=== PATIENT | female | born 1945 | race Caucasian/White ===

== ENCOUNTER 2024-04-25 17:44 | Inpatient (IN) | payer MEDICARE, OTHER, SELFPAY ==
[2024-04-25] VITALS (9 sets, daily range): BP systolic 103–138; BP diastolic 46–85; PULSE 76–96; BMI 19.4; BMI 18.6
[2024-04-25 12:58] LABS: Urine Albumin Negative (Neg - Trace); Urine Bilirubin Negative (Negative); Urine Character Clear (Clear); Urine Color Yellow; Urine Glucose Negative (Negative); Urine Ketone Negative (Negative); Urine Leukocyte Negative (Negative); Urine Nitrite Negative (Negative); Urine Occult Blood Negative (Negative); Urine Specific Gravity 1.015 (<1.030); Urine Urobilinogen Negative (Neg - 1+)
[2024-04-25 12:59] LABS: % Basophils 0.7 % (0-2); % Eosinophils 2.5 % (0-6); % Immature Granulocytes 0.2 % (0-0.5); % Lymphocytes 22.4 % (20.5-51.1); % Monocytes 9.3 % (1.7-9.3); % Neutrophils 64.9 % (42.2-75.2); Absolute Eosinophils 0.1 10^3/uL (0-0.7); Absolute Lymphocytes 0.9 10^3/uL (1.2-3.4); Absolute Monocytes 0.4 10^3/uL (0.1-0.6); Absolute Neutrophils 2.6 10^3/uL (1.4-6.5); Hematocrit 39.4 % (37.0-47.0); Hemoglobin 13.7 g/dL (12.0-16.0); Mean Corp Hgb Conc. 34.8 g/dL (33.0-37.0); Mean Corpuscular Hgb 29.7 pg (27.0-31.0); Mean Corpuscular Volume 85.5 fL (81.0-99.0); Nucleated Red Blood Cells % 0 %; Platelet Count 199 10^3/uL (130-400); Red Blood Cell Count 4.61 10^6/uL (4.20-5.40); Red Cell Dist. Width 13.3 % (11.5-14.5); White Blood Cell Count 4.1 10^3/uL (4.8-10.8)
[2024-04-25 13:13] LABS: ALT (SGPT) 26 U/L (0-35); AST (SGOT) 35 U/L (14-36); Albumin 4.5 g/dl (3.5-5.0); Alkaline Phosphatase 96 U/L (38-126); Blood Urea Nitrogen 16 mg/dl (7-17); Calcium 9.4 mg/dl (8.4-10.2); Carbon Dioxide 28 mmol/L (22-30); Chloride 88 mmol/L (98-107); Estimated Creatinine Clearance 52 ml/min; Glucose 106 mg/dl (70-99); Potassium 4.1 mmol/L (3.5-5.1); Sodium 127 mmol/L (135-145); Total Bilirubin 0.5 mg/dl (0.2-1.3); Total Protein 6.6 g/dl (6.3-8.2); eGFR > 60.00
[2024-04-25 13:26] LABS: Troponin I < 0.012 ng/ml
--- NOTE | 2024-04-25 14:18 | ED.GENMED ---
History of Present Illness
General
Chief Complaint: Dizziness
Source: patient
Exam Limitations: none
Time Seen by Provider: 04/25/24 12:45
Nursing documentation reviewed up to this point in time: agreed with
History of Present Illness
History of Present Illness:
pt is a 79 y/o F h/o celiac disease, chronic back pain
here with dizziness x 3-4 weeks
saying she started noticing a room spinning sensation similar to her previous vertigo/vestibular problem that she had years ago and did therapy for
so she started doing the exercises but hasn't felt improvement
it has also come along with a headache, daily, posterior that waxes and wanes but has been present for at least 2 weeks
about 10 day ago she went to a clinic near her house and they sent her to a hospital in [place]
there, they did testing and ct head and pt believes eerything was ok, but that they felt it to be due to 'vestibular problem
Yet she was not put on any medication for this. Patient says she is continue to have symptoms especially with standing or changing position in the bed like turning her head [id number]. And now she is feeling like she is having trouble walking
with her balance. She has not had any sudden worsening of the headache, vision changes, numbness or tingling in her arms or legs but she does feel like her legs are overall generally weak. She is anxious and tearful about going home because she is
feeling like she is unsafe to be there. She is not feeling like she is leaning to one side or feeling like she is going to pass out. No chest pain or shortness of breath
Past History
Past History
ED Past Medical History: Other (Low back pain, Lyme disease) and Other (Peripheral neuropathy)
ED Past Surgical History: Appendectomy
Social History
Tobacco: Non-smoker
Alcohol: None
Personal:
Living: with family
Employment: Retired
Family History
Family History: CAD and Other (Noncontributory)
Review of Systems
Review of Systems
Allergies reviewed?: Yes
All Other Systems: Not applicable
Phy Exam
Physical Exam
Physical Exam:
GENERAL: Alert , in no apparent distress, but tearful
HEAD: NCAT
EYE: pupils equal and reactive, mild lateral gaze horizontal nystagmus, no photophobia
NECK: Supple,full rom, nontender
ENT: o/p clr, mmm.
CARDIAC: Regular rate and rhythm . no edema
LUNGS: Clear breath sounds bilaterally, no acute respiratory distress, no wheezes/rales/rhonchi
ABDOMEN: Soft, without focal tenderness, no r/g, no cvat
NEUROLOGICAL: Alert and orientedx 4, cn intact, no facial asymmetry, 5/5 strength in UE/LE, sensation intact, romberg neg, ambulates without assistance but slowly and slightly wide based, neg pronator drift
SKIN: Warm and dry, skin intact.
MUSCULOSKELETAL: No edema, well perfused.
PSYCH: Normal and appropriate interaction.
Course
Orders/Labs/Results
Orders:
Orders
04/25/24 Lunch
Gluten Free
At Your Request: Full Participation
Does patient need a safe tray?: No
Fluid Restriction: 1800 mL/day (60 oz)
04/25/24 11:47
ECG [Electrocardiogram (*1)] Urgent
Reason for Study: Vertigo / Dizzy
04/25/24 11:48
EKG- Treatment ONCE
04/25/24 12:49
Complete Blood Count/With Diff Urgent
Comprehensive Metabolic Panel Urgent
Osmolality, Random Urine Urgent
Date Specimen was Collected: 04/25/24
Time Specimen was Collected: 12:40
Comment: ADD ON
Serum Osmolality Urgent
Comment: ADD ON
Troponin I Urgent
UA Reflex to Culture [Urinalysis Reflex To Culture] Urgent
Date Specimen was Collected: 04/25/24
Time Specimen was Collected: 12:40
Urine Sodium Urgent
Date Specimen was Collected: 04/25/24
Time Specimen was Collected: 12:40
Comment: ADD ON
04/25/24 13:46
CT Head & Neck Angio W/wo IV Urgent
Comment:
Reason For Exam: dizziness
04/25/24 14:25
Diazepam [Valium] 5 mg PO NOW STA
04/25/24 14:49
COVID-19 Antigen Urgent
Source: Nasal Swab
04/25/24 15:47
Acetaminophen [Tylenol] 650 mg PO NOW STA
04/25/24 15:53
Add On- LAB Urgent
Tests Added?: serum osolality, urine sodium
04/25/24 17:30
Admit/Transfer Patient As Directed
Co-Sign Provider:
Level of Care: Inpatient admission
Assign to:: Medical/Surgical
Physician / Group: Lori Mason
Diagnosis: Vertigo possibly symptomatic Hyponatremia vs Vestibular Neuritis
Reason for Hospitalization: Vertigo possibly symptomatic Hyponatremia vs Vestibular Neuritis
Expected length of stay greater than two midnights?: Yes
ELOS- Estimated Length of Stay in days: 2
I certify the patient meets the requirements for IP care: Yes
PRN Pain Medication Management As Directed
May give lesser potent ordered pain med per pt: Yes
preference::
Protocol:: Medication orders for pain may be administered in a
manner that supports deferring to patient preference
when the pt is:
- Requesting an ordered lesser potent pain medication.
Least to most potent pain medications are defined
as: acetaminophen < NSAID < tramadol < opioids
(morphine, oxycodone, hydromorphone).
- Requesting a lesser dose of the same medication IF
ORDERED.
- Requesting a less intrusive route of administration
if both routes are prescribed by the provider (PO <
IV).
04/25/24 17:33
Code Status As Directed
Resuscitation Status: Full Code
04/25/24 18:17
Bisacodyl [Dulcolax] 10 mg RECTAL [id number] PRN
Diazepam [Valium] 5 mg PO BIDPRN PRN
Docusate W/Senna [Senokot-S] 1 tablet PO BIDPRN PRN
Polyethylene Glycol Powder [Miralax] 17 grams PO DAILYPRN PRN
04/25/24 18:17
Activity As Directed
Activity Level: With Assistance
Medical Records Request [Obtain Records] As Directed
Dates of Information to be Released: [facility]
Type of Information Requested: Entire Record
Comment: Recent hospitalization this month Apr work up dizziness
Pneumatic Compression Sleeves As Directed
Type: Knee high
Precautions As Directed
Type of Precautions: Other
Comment: Fall precautions
Vital Signs As Directed
Frequency: Per unit guidelines
Ot Eval And Treat Routine
Pt Eval And Treat Routine
Activity Level: With Assistance
DX Deep Vein Thrombosis Video Routine
04/25/24 20:00
Calcium Carbonate [Oscal Galo 500] 500 mg PO BID
Magnesium l-Lactate [Mag-Tab Sr] 84 mg PO BID
04/25/24 22:00
Pramipexole [Mirapex, Generic] 0.5 mg PO HS
04/26/24 05:52
Basic Metabolic Panel IN AM
Complete Blood Count/No Diff IN AM
Magnesium IN AM
04/26/24 08:00
Cholecalciferol (Vitamin D3) [VITAMIN D3 (cholecalciferol)] 50 mcg PO DAILY
Cyanocobalamin [Vitamin B-12] 1,000 mcg PO DAILY
Lactobac/Bifidobac [Visbiome] 1 cap PO DAILY
04/26/24 14:00
Pramipexole [Mirapex] 0.25 mg PO DAILY@1400
04/27/24 06:02
Basic Metabolic Panel IN AM
Complete Blood Count/No Diff IN AM
Magnesium IN AM
04/28/24 06:00
Basic Metabolic Panel IN AM
Complete Blood Count/No Diff IN AM
Magnesium IN AM
04/29/24 06:00
Basic Metabolic Panel IN AM
Complete Blood Count/No Diff IN AM
Magnesium IN AM
04/30/24 06:00
Basic Metabolic Panel IN AM
Complete Blood Count/No Diff IN AM
Magnesium IN AM
05/01/24 06:00
Basic Metabolic Panel IN AM
Complete Blood Count/No Diff IN AM
Magnesium IN AM
05/02/24 06:00
Basic Metabolic Panel IN AM
Complete Blood Count/No Diff IN AM
Magnesium IN AM
Abnormal Lab Results
04/25/24
12:49
WBC 4.1 L 10^3/uL
(4.8-10.8)
Absolute Lymphs (auto) 0.9 L 10^3/uL
(1.2-3.4)
Sodium 127 L mmol/L
(135-145)
Chloride 88 L mmol/L
(98-107)
Glucose 106 H mg/dl
(70-99)
Serum Osmolality 259 L mOsm/kg
(275-300)
Urine Sodium 29 L mmol/L
(30-90)
04/25/24 12:49
04/25/24 12:49
Vital Signs
Initial and Last Documented VS:
Initial Vital Signs
Temp Pulse Resp BP Pulse Ox
98.3 F 87 18 125/85 99
04/25/24 11:43 04/25/24 11:43 04/25/24 11:43 04/25/24 11:43 04/25/24 11:43
Last Documented Vital Signs
Temp Pulse Resp BP Pulse Ox
98 F 94 20 119/70 98
04/27/24 07:00 04/27/24 07:00 04/27/24 07:00 04/27/24 07:00 04/27/24 07:00
MDM/Problems Addressed
Differential Diagnosis Includes:
vertigo, dissection, stroke, migraine, menieres disease, hyponatremia
MDM/Problems Addressed:
79 y/o F with ho vestibular vertigo in the past
here with dizziness that feels like room spinnintg at times over epaast several weeks not improved with her doing home vestibular therpay
she went to an outside hospital ED 10 days ago and had w/u there and was told they also agreed it was vestibular dysfunction. Patient says she was not given any medications to try.
She comes today because she has had ongoing symptoms with a progressive worsening headache. It is 9 out of 10 global headache. She has had a headache all long. And never suddenly got worse.
Patient says that she feels like her balance is poor and affected at this point. She also feels like she has lower extremity weakness in her legs. She says they just do not feel as strong as her upper extremities. She has chronically had
hyponatremia but she says her doctor really does not tell her anything about it. She does not think she is on any medications to cause it. She is only taking an medication for restless leg syndrome. But she does drink a lot of water, she thinks
she cannot even quantify how much water she drinks. On exam the patient is tearful. She has no resting nystagmus. She is able to turn her head in the bed without getting sick. Neurologically is otherwise intact though she did have a slightly
wider base gait and seemed a little bit off balance though she could walk unassisted. She feels generally weak in her legs but I do not appreciate any overt weakness. She has reflexes in her upper extremities.
Her labs show her sodium is 127 and has been as low as 126 previously. She is never received treatment for this. I do feel like her symptoms could largely be secondary to her sodium which is possibly SIADH. She feels very anxious about going
home. I did offer to treat her with Valium p.o. for both her restless legs and the possible vertigo that she has she declined the medication. Will admit for workup for hyponatremia given that she is symptomatic
*Critical Care Note
Total Time (30-74mins, 75-104mins- exclusive of procedures): Not Applicable
ED Attending Note
-
Portions of this chart may have been created with voice recognition software.� Occasional wrong word or��sound alike� substitutions may have occurred due to the inherent limitations of voice recognition software.
Discharge Plan
Departure
Patient Disposition: Admit
Date of Disposition: 04/25/24
Time of Disposition: 15:27
Admit to: Telemetry
Presentation/result/management discussed w/ accepting MD/DO: Hospitalist
Condition: Fair
Covid-19: Not Applicable
Discharge Problem:
Hyponatremia, Dizziness
Interventions
Interventions:
*Risk Screen - Suicide Last Done: 04/25/24 19:50
*General Assessment Last Done: 04/25/24 11:43
*Neglect/Abuse Screening Last Done: 04/25/24 12:33
ED- Fall Risk Assessment Last Done: 04/25/24 13:45
*ED COVID-19 Vaccine History Last Done: 04/25/24 19:50
*Nursing Disposition Last Done: 04/25/24 18:31
ED- Neurological Assessment Last Done: 04/25/24 13:44
ED- Cardiac Assessment Last Done: 04/25/24 14:00
Discharge Date and Time
Discharge Date/Time: 04/25/24 18:32
[2024-04-25 15:22] LABS: COVID-19 Antigen Negative (Negative)
[2024-04-25] MEDS: TYLENOL 650 MG PO ×2 (15:49→20:05)
--- NOTE | 2024-04-25 15:55 | HPS.HSE ---
Family Physician
-
Family Physician: Sandra Rahman
Chief Complaint
-
Dizziness
History of Present Illness
79 female history of celiac disease chronic back pain appendectomy restless leg syndrome chronic hyponatremia presents with intermittent dizziness progressive for the last few weeks acutely worsening last 10 days. 10 days ago, patient report
symptoms acutely worsen overnight when she woke up to her way bad smell in the house. Unclear as to whether stress of the smell was. Patient had her house inspected for source, none identified and it seems that she is the only one who notices the
smell. Patient was evaluated at [facility] in [facility] and diagnosed with Vestibular Neuritis. No new medications were prescribed. Symptoms progressively worsen prompting evaluation here. VSS, CTA head and neck noted no acute
abn's. Labs were notable for Na 127, low serum osmolality and low urine Na suggestive hyponatremia 2/2 excess water intake (patient does endorse drinking a lot of water denies polydipsia).
Medical History
Past Medical History
Past Medical History: Reports Other (as above)
Past Surgical History: Reports Other (as above)
Social History
Tobacco: Non-smoker
Alcohol: Occasional
Drug: None
Personal: Partner
Living: Other (Lives with Partner but he is away in trip to [facility])
Family History
Family History: Other (Mother had stroke in her 70s)
Allergies / Home Medications
Allergies reflects when Allergies were last updated in [facility].
Home Medications with original date entered in [facility]
Allergy/Medication List:
Allergies
Allergy/AdvReac Type Severity Reaction Status Date / Time
gluten Allergy celiac Verified 04/25/24 11:43
disease
Home Medications
cholecalciferol (vitamin D3) 50 mcg (2,000 unit) capsule (Vitamin D3) 2,000 unit PO DAILY 07/11/17
Lactobac no.2-Bifidobac no.1-S. thermo 112.5 billion cell capsule (Anjukebiome) 1 cap PO DAILY 04/25/24
calcium carbonate (Calcium 600) 600 mg PO BID 04/25/24
cyanocobalamin (vitamin B-12) 1,000 mcg tablet 1,000 mcg PO DAILY 04/25/24
magnesium oxide 400 mg PO BID 04/25/24
omega 4-soh-iaj-fish oil 900 mg-1,400 mg capsule,delayed release 1 cap PO BID 04/25/24
pramipexole 0.25 mg tablet 0.25 mg PO DAILY@1400 04/25/24
pramipexole 0.25 mg tablet 0.5 mg PO HS 04/25/24
Review of Systems
-
A 12 point ROS was completed and negative except as noted: Yes
Constitutional: Reports Other (as below)
Physical Exam
Vital Signs
Vital Signs
Temp Pulse Resp BP Pulse Ox
98.3 F 75 17 123/71 97
04/25/24 11:43 04/25/24 13:50 04/25/24 13:50 04/25/24 13:50 04/25/24 13:45
Physical Exam
General: Other (as below)
Laboratory Results
-
04/25/24 12:49
04/25/24 12:49
Laboratory Results
Total Bilirubin 0.5 mg/dl (0.2-1.3) 04/25/24 12:49
AST 35 U/L (14-36) 04/25/24 12:49
ALT 26 U/L (0-35) 04/25/24 12:49
Alkaline Phosphatase 96 U/L (38-126) 04/25/24 12:49
Troponin I < 0.012 ng/ml 04/25/24 12:49
Impression/Plan
-
ROS
General: Denies fever chills night sweats unexpected weight loss
Neuro: Denies seizure shaking loss of consciousness reports dizziness vertigo headache
Psych: denies depression hallucinations confusion manic episodes
Endocrine: Denies polyuria polydipsia polyphagia heat/cold intolerance
HEENT: Denies blindness epistaxis reports blurry vision in association with headache
Pulmonary: denies coughing hemoptysis sneezing sob dyspnea on exertion
Cardiovascular: denies chest pain palpitations leg swelling
Hematology: denies signs symptoms of anemia easy bruising/bleeding
Gastrointestinal: denies nausea vomiting diarrhea constipation hematemesis hematochezia melena
Genito-Urinary: denies retention incontinence dysuria
Musculoskeletal: denies joint pain reports lower ext weakness
Dermatology: denies rash laceration bruising
Physical Exam
General: No pallor, cyanosis, or jaundice.
HEENT: Throat clear. PERRLA Normocephalic atraumatic Horizontal Nystagmus seems to be more prevalent on rightward gaze
NECK: Supple. No JVD Carotid Bruits
RESPIRATORY: Lungs clear to auscultation. No crackles wheezes stridor
CVS: S1, S2 normal. RRR. No murmur, rub or gallop.
ABDOMEN: Soft, non-tender. No distension. BS+/normal.
EXTREMITIES: No peripheral cyanosis or edema. strength 5/5 all ext's. Witnessed ambulating from bed to bathroom and back without issues/assist device
BAR TACKER: AOx3. No focal deficits.
IMPRESSION:
79 female history of celiac disease chronic back pain appendectomy restless leg syndrome chronic hyponatremia presents with intermittent dizziness progressive for the last few weeks acutely worsening last 10 days. 10 days ago, patient report
symptoms acutely worsen overnight when she woke up to her way bad smell in the house. Unclear as to whether stress of the smell was. Patient had her house inspected for source, none identified and it seems that she is the only one who notices the
smell. Patient was evaluated at [facility] in [facility] and diagnosed with Vestibular Neuritis. No new medications were prescribed. Symptoms progressively worsen prompting evaluation here. VSS, CTA head and neck noted no acute
abn's. Labs were notable for Na 127, low serum osmolality and low urine Na suggestive hyponatremia 2/2 excess water intake (patient does endorse drinking a lot of water denies polydipsia)
PLAN:
#Hyponatremia possible dilutional water intoxication
#Dizziness vertigo likely vestibular neuritis possibly exacerbated by symptomatic hyponatremia
med/surg admit
Fluid restriction
valium prn
fall precautions
PT/OT
trend Na
Records Request [place], [place]
#Headache with associate blurry vision possible migraine
prn tylenol
#Restless Leg
cont home Pramipexole
#Celiac dz
Gluten free diet
dvt ppx SCD
Full Code
I spent a total of 75 minutes with the patient or on the floor. More than 50% of this time involved counseling and coordination of care.
[2024-04-25 16:51] LABS: Osmolality Serum 259 mOsm/kg (275-300)
[2024-04-25 16:59] LABS: Urine Sodium 29 mmol/L (30-90)
[2024-04-25 19:03] LABS: Osmolality Urine 341 mOsm/kg (300-900)
[2024-04-25] MEDS: MAG-TAB SR 84 MG PO (20:05)
[2024-04-25] MEDS: OSCAL CAL 500 500 MG PO (20:05)
[2024-04-25] MEDS: MIRAPEX, GENERIC 0.5 MG PO (21:26)
[2024-04-26] MEDS: MIRAPEX 0.125 MG PO (02:47)
[2024-04-26 06:07] LABS: Hematocrit 37.1 % (37.0-47.0); Mean Corpuscular Hgb 29.6 pg (27.0-31.0); Mean Corpuscular Volume 84.5 fL (81.0-99.0); Mean Platelet Volume 9.8 fL (7.4-10.4); Platelet Count 195 10^3/uL (130-400); Red Blood Cell Count 4.39 10^6/uL (4.20-5.40); Red Cell Dist. Width 13.2 % (11.5-14.5); White Blood Cell Count 5.1 10^3/uL (4.8-10.8)
[2024-04-26 06:35] LABS: Blood Urea Nitrogen 16 mg/dl (7-17); Calcium 9.2 mg/dl (8.4-10.2); Carbon Dioxide 29 mmol/L (22-30); Chloride 95 mmol/L (98-107); Estimated Creatinine Clearance 58 ml/min; Glucose 94 mg/dl (70-99); Magnesium 2.2 mg/dl (1.6-2.3); Potassium 4.1 mmol/L (3.5-5.1); Sodium 134 mmol/L (135-145); eGFR > 60.00
[2024-04-26 07:15] VITALS: BP 138/91
--- NOTE | 2024-04-26 07:28 | W.PN.HOSP.TC ---
Today's Communication/Plan
-
Monitor Na, improved, relax fluid restrictions to 60 oz
Trial low dose Meclizine
prn Fioricet for headache if patient agreeable, otherwise prn Tylenol
discontinued prn Valium (did not help)
Assessment / Plan
Assessment / Plan
Physical Exam
General: No pallor, cyanosis, or jaundice.
HEENT: Throat clear. PERRLA Normocephalic atraumatic Horizontal Nystagmus seems to be more prevalent on rightward gaze
NECK: Supple. No JVD Carotid Bruits
RESPIRATORY: Lungs clear to auscultation. No crackles wheezes stridor
CVS: S1, S2 normal. RRR. No murmur, rub or gallop.
ABDOMEN: Soft, non-tender. No distension. BS+/normal.
EXTREMITIES: No peripheral cyanosis or edema. strength 5/5 all ext's. Witnessed ambulating from bed to bathroom and back without issues/assist device
LINING FELLER: AOx3. No focal deficits.
IMPRESSION:
79 female history of celiac disease chronic back pain appendectomy restless leg syndrome chronic hyponatremia presents with intermittent dizziness progressive for the last few weeks acutely worsening last 10 days. 10 days ago, patient report
symptoms acutely worsen overnight when she woke up to her way bad smell in the house. Unclear as to whether stress of the smell was. Patient had her house inspected for source, none identified and it seems that she is the only one who notices the
smell. Patient was evaluated at [facility] in [facility] [place] and diagnosed with Vestibular Neuritis. No new medications were prescribed. Symptoms progressively worsen prompting evaluation here. VSS, CTA head and neck noted no acute
abn's. Labs were notable for Na 127, low serum osmolality and low urine Na suggestive hyponatremia 2/2 excess water intake (patient does endorse drinking a lot of water denies polydipsia)
PLAN:
#Hyponatremia possible dilutional water intoxication
#Dizziness vertigo possibly exacerbated by symptomatic hyponatremia
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
Fluid restriction, Na since significantly from from 127 to 134, fluid restriction subsequently relaxed from 48 oz to 60 oz.
valium prn discontinued, did not help (patient feels medication worsened dizziness)
fall precautions
PT/OT appreciated recommended to cont w/ outpatient vestibular therapy (Has upcoming appt Sunday)
Records Request [place], [place]
start low dose scheduled meclizine
negative orthostatic hypotension
#Headache with associate blurry vision possible migraine
prn tylenol, prn fioricet also ordered has not used
#Restless Leg
cont home Pramipexole
#Celiac dz
Gluten free diet
dvt ppx SCD
Full Code
I spent a total of 50 minutes with the patient or on the floor. More than 50% of this time involved counseling and coordination of care.
Anticipated Discharge: Within 24 hours
Subjective/Interval History
-
Date of Service: April 26, 2024
no acute distress. Reports dizziness and headache. Earlier noted Blurry vision resolved
Objective Data
-
Labs:
Laboratory Results
04/26/24
05:52
WBC 5.1
Hgb 13.0
Hct 37.1
Plt Count 195
Sodium 134 L
Potassium 4.1
Chloride 95 L
Carbon Dioxide 29
BUN 16
Creatinine 0.6
Glucose 94
Calcium 9.2
Vital Signs:
Vital Signs
Temp Pulse Resp BP Pulse Ox
97.7 F 76 16 114/64 97
04/25/24 23:00 04/25/24 23:00 04/25/24 23:00 04/25/24 23:00 04/25/24 23:00
I&O
04/25/24 04/26/24 04/27/24
06:59 06:59 06:59
Intake Total 240 / 240
Balance 240 / 240
[2024-04-26 09:23] VITALS: BP 100/60; BP 127/69; BP 140/82; PULSE 116; PULSE 122
[2024-04-26] MEDS: VISBIOME 1 CAP PO (09:42)
[2024-04-26] MEDS: MAG-TAB SR 84 MG PO ×2 (09:42→20:45)
[2024-04-26] MEDS: TYLENOL 650 MG PO ×2 (09:42→17:08)
[2024-04-26] MEDS: OSCAL CAL 500 500 MG PO ×2 (09:42→20:45)
[2024-04-26] MEDS: VALIUM 5 MG PO (09:42)
[2024-04-26] MEDS: VITAMIN D3 (cholecalciferol) 50 MCG PO (09:42)
[2024-04-26] MEDS: VITAMIN B-12 1000 MCG PO (09:42)
[2024-04-26 11:06] VITALS: BP 106/63; BP 126/62; BP 127/59; PULSE 107; PULSE 80; PULSE 98
--- NOTE | 2024-04-26 12:31 | CM ---
CM reviewed chart, met with patient, initial assessment completed. Patient resides independently in a multiple story home with a first floor set up, three steps to enter. Patient denies use of DME, denies VN or SNF history. Patient reports she has
an appointment scheduled for Sunday for Vestibular Therapy. Patient confirms PCP Sandra Rahman, pharmacy [facility] in [place], [place]. Patient confirms prescription coverage. Patient denies any needs at this time. CM will continue to follow for all
discharge planning needs.
Plan; home with vestibular therapy, previously set up.
[2024-04-26 15:34] VITALS: BP 104/64
[2024-04-26] MEDS: MIRAPEX 0.25 MG PO (16:03)
[2024-04-26] MEDS: ANTIVERT 12.5 MG PO ×2 (17:36→21:48)
[2024-04-26] MEDS: ANTIVERT PO (20:43)
[2024-04-26] MEDS: MIRAPEX, GENERIC 0.5 MG PO (20:45)
[2024-04-26 23:25] VITALS: BP 104/70
[2024-04-27] MEDS: TYLENOL 650 MG PO (05:26)
[2024-04-27 06:43] LABS: Hematocrit 37.6 % (37.0-47.0); Hemoglobin 13.2 g/dL (12.0-16.0); Mean Corp Hgb Conc. 35.1 g/dL (33.0-37.0); Mean Corpuscular Hgb 30.8 pg (27.0-31.0); Mean Corpuscular Volume 87.6 fL (81.0-99.0); Mean Platelet Volume 10.3 fL (7.4-10.4); Platelet Count 191 10^3/uL (130-400); Red Blood Cell Count 4.29 10^6/uL (4.20-5.40); Red Cell Dist. Width 13.5 % (11.5-14.5); White Blood Cell Count 4.8 10^3/uL (4.8-10.8)
[2024-04-27 07:00] VITALS: BP 119/70
[2024-04-27 07:14] LABS: Blood Urea Nitrogen 16 mg/dl (7-17); Calcium 9.2 mg/dl (8.4-10.2); Carbon Dioxide 32 mmol/L (22-30); Chloride 97 mmol/L (98-107); Estimated Creatinine Clearance 50 ml/min; Glucose 94 mg/dl (70-99); Magnesium 1.9 mg/dl (1.6-2.3); Potassium 4.2 mmol/L (3.5-5.1); Sodium 135 mmol/L (135-145); eGFR > 60.00
--- NOTE | 2024-04-27 07:16 | W.PN.HOSP.TC ---
Addendum entered and electronically signed by Lori Mason MD 04/27/24 14:29:
Per nurse, patient changed her mind regarding meclizine (previously had reported as worsening her symptoms) requested to continue on medication.
Prescription sent to patient's pharmacy.
Original Note:
Today's Communication/Plan
-
discharge
Assessment / Plan
Assessment / Plan
Physical Exam
General: No pallor, cyanosis, or jaundice.
HEENT: Throat clear. PERRLA Normocephalic atraumatic Horizontal Nystagmus seems to be more prevalent on rightward gaze
NECK: Supple. No JVD Carotid Bruits
RESPIRATORY: Lungs clear to auscultation. No crackles wheezes stridor
CVS: S1, S2 normal. RRR. No murmur, rub or gallop.
ABDOMEN: Soft, non-tender. No distension. BS+/normal.
EXTREMITIES: No peripheral cyanosis or edema. strength 5/5 all ext's. Ambulating without need for assist device
SHE[employer] HELPER: AOx3. No focal deficits.
IMPRESSION:
79 female history of celiac disease chronic back pain appendectomy restless leg syndrome chronic hyponatremia presents with intermittent dizziness progressive for the last few weeks acutely worsening last 10 days. 10 days ago, patient report
symptoms acutely worsen overnight when she woke up to her way bad smell in the house. Unclear as to whether stress of the smell was. Patient had her house inspected for source, none identified and it seems that she is the only one who notices the
smell. Patient was evaluated at [facility] in [facility] and diagnosed with Vestibular Neuritis. No new medications were prescribed. Symptoms progressively worsen prompting evaluation here. VSS, CTA head and neck noted no acute
abn's. Labs were notable for Na 127, low serum osmolality and low urine Na suggestive hyponatremia 2/2 excess water intake (patient does endorse drinking a lot of water denies polydipsia)
PLAN:
#Hyponatremia possible dilutional water intoxication resolved with fluid restriction
#Dizziness vertigo possibly exacerbated by symptomatic hyponatremia
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
Fluid restriction, Na since significantly from from 127 to 134, fluid restriction subsequently relaxed from 48 oz to 60 oz, hyponatremia since resolved
valium prn and meclizine discontinued, did not help (patient feels medication worsened dizziness)
fall precautions
PT/OT appreciated recommended to cont w/ outpatient vestibular therapy (Has upcoming appt Sunday)
Records Request [place], [place]
negative orthostatic hypotension
#Headache with associate blurry vision possible migraine
prn tylenol, prn fioricet also ordered has not used
#Restless Leg
cont home Pramipexole
#Celiac dz
Gluten free diet
dvt ppx SCD
Full Code
Medically stable for discharge home with outpatient follow up recommendations.
Total Time Preparing Discharge __40 minutes including examination of the patient, summary of the hospital stay, instructions for continuing care to all relevant caregivers; and preparation of discharge records, prescriptions, and referral
forms if necessary.
Anticipated Discharge: Today
Subjective/Interval History
-
Date of Service: April 27, 2024
No acute distress ambulating without issues. Overall reports feeling well though dizziness headache persist. Reports Meclizine exacerbating symptoms as opposed to helping.
Objective Data
-
Labs:
Laboratory Results
04/27/24
06:02
WBC 4.8
Hgb 13.2
Hct 37.6
Plt Count 191
Sodium 135
Potassium 4.2
Chloride 97 L
Carbon Dioxide 32 H
BUN 16
Creatinine 0.7
Glucose 94
Calcium 9.2
Vital Signs:
Vital Signs
Temp Pulse Resp BP Pulse Ox
97.5 F 78 20 104/70 98
04/26/24 23:25 04/26/24 23:25 04/26/24 23:25 04/26/24 23:25 04/26/24 23:25
I&O
04/26/24 04/27/24 04/28/24
06:59 06:59 06:59
Intake Total 240 / 240 480 / 480 120 / 120
Balance 240 / 240 480 / 480 120 / 120
[2024-04-27] MEDS: VISBIOME 1 CAP PO (07:28)
[2024-04-27] MEDS: VITAMIN B-12 1000 MCG PO (07:28)
[2024-04-27] MEDS: OSCAL CAL 500 500 MG PO (07:28)
[2024-04-27] MEDS: MAG-TAB SR 84 MG PO (07:29)
[2024-04-27] MEDS: VITAMIN D3 (cholecalciferol) 50 MCG PO (07:29)
[2024-04-27] MEDS: ANTIVERT 12.5 MG PO ×2 (07:31→14:39)
[2024-04-27 08:26] VITALS: BP 119/70
--- NOTE | 2024-04-27 14:08 | W.DCSUMMARY ---
Discharge Summary
Discharge Data
Date of Admission: 04/25/24
Date of Discharge: 04/27/24
-
Pending Results: No
Discharge Plan
-
Patient Disposition: Home (Routine Discharge)
Discharge Diagnosis/Procedures: Hyponatremia
Dizziness vertigo possibly exacerbated by symptomatic hyponatremia
Decompensated chronic vestibular asymmetry
Headache possible migraine
Condition: Fair
Diet: Restrict fluids to 64 oz and Other diet
Additional Diets: Gluten Free
Activity: As tolerated
Driving Restrictions: Not until seen by your Dr
Bathing Restrictions: None
Blood Work: Please repeat BMP with primary care provider in 1 week of discharge
Activity Restrictions/Additional Instructions:
Please keep your appointment for outpatient vestibular therapy and follow up with primary care provider in 1 week of discharge.
Referrals:
Sandra Rahman MD [Family Provider] - in one week
Prescriptions:
Continued
cholecalciferol (vitamin D3) [Vitamin D3] 2,000 UNIT capsule
2,000 unit PO DAILY
cyanocobalamin (vitamin B-12) 1,000 mcg Tablet
1,000 mcg PO DAILY
calcium carbonate [Calcium 600] 600 mg calcium (1,500 mg) Tablet
600 mg PO BID
pramipexole 0.25 mg Tablet
0.5 mg PO HS
pramipexole 0.25 mg Tablet
0.25 mg PO DAILY@1400
Visbiome 112.5 billion cell Capsule
1 cap PO DAILY
omega 0-izk-ssv-fish oil 900-1,400 mg Capsule,Delayed Release(Dr/Ec)
1 cap PO BID
magnesium oxide 400 mg magnesium Tablet
400 mg PO BID
turmeric-herbal complex no.278 150 mg Capsule
1 cap PO AC
Discharge Orders:
Discharge Patient (As Directed); Ordered 04/27/24
Ordered By: Lori Mason
Discharge Date and Time
Print Language: IRAQI
[2024-04-27] MEDS: MIRAPEX PO (14:39)
[2024-04-27 15:00] VITALS: BP 125/60
--- NOTE | 2024-04-27 15:21 | CM ---
Patient seen bedside, for discharge today. IMM reviewed, signed, placed in chart, patient provided with copy. CM will continue to follow for all discharge planning needs.
Plan; home with continuance out outpatient vestibular therapy.
== END 2024-04-27 15:57 | disposition home or self-care (01) | DRG 641 ==
LOC: 4 WEST ACU 17:44
PROVIDERS: Physician Assistant; ADMITTING PHYSICIAN Internal Medicine; EMERGENCY PHYSICIAN Emergency Medicine; FAMILY PHYSICIAN Family Medicine
DX: E87.1 Hypo-osmolality and hyponatremia (principal); G25.81 Restless legs syndrome; G62.9 Polyneuropathy, unspecified; K90.0 Celiac disease; G43.909 Migraine, unspecified, not intractable, without status migrainosus; H81.93 Unspecified disorder of vestibular function, bilateral; Z11.52 Encounter for screening for COVID-19; Z86.19 Personal history of other infectious and parasitic diseases
CPT/HCPCS: 70496; 70498; 80048; 80053; 81003; 83735; 83930; 83935; 84300; 84484; 85025; 85027; 87811; 93005; 97112; 97116; 97163; 97166; 99285; Q9967

== ENCOUNTER → 2024-05-02 16:06 | Outpatient (REF) | payer MEDICARE, OTHER, SELFPAY | LOC: MRI 3T 16:06 | DX: R44.2 Other hallucinations (principal) | CPT/HCPCS: 70553; A9575 ==

== ENCOUNTER → 2024-05-22 12:26 | Outpatient (REF) | payer MEDICARE, OTHER, SELFPAY | LOC: RAD 12:26 | PROVIDERS: ATTENDING PHYSICIAN Family Medicine | DX: M54.50 Low back pain, unspecified (principal) | CPT/HCPCS: 72110 ==

== ENCOUNTER 2024-11-08 18:04 | Emergency (ER) | payer MEDICARE, OTHER, SELFPAY ==
[2024-11-08 18:13] VITALS: BP 135/68
[2024-11-08 18:34] LABS: % Basophils 0.6 % (0-2); % Eosinophils 2.5 % (0-6); % Immature Granulocytes 0.2 % (0-0.5); % Lymphocytes 26.6 % (20.5-51.1); % Monocytes 8.9 % (1.7-9.3); % Neutrophils 61.2 % (42.2-75.2); Absolute Eosinophils 0.1 10^3/uL (0-0.7); Absolute Lymphocytes 1.4 10^3/uL (1.2-3.4); Absolute Monocytes 0.5 10^3/uL (0.1-0.6); Absolute Neutrophils 3.2 10^3/uL (1.4-6.5); Hematocrit 39.1 % (37.0-47.0); Hemoglobin 13.5 g/dL (12.0-16.0); Mean Corp Hgb Conc. 34.5 g/dL (33.0-37.0); Mean Corpuscular Hgb 29.5 pg (27.0-31.0); Mean Corpuscular Volume 85.6 fL (81.0-99.0); Nucleated Red Blood Cells % 0 %; Platelet Count 192 10^3/uL (130-400); Red Blood Cell Count 4.57 10^6/uL (4.20-5.40); Red Cell Dist. Width 13.1 % (11.5-14.5); White Blood Cell Count 5.2 10^3/uL (4.8-10.8)
[2024-11-08 18:56] LABS: Troponin I < 0.012 ng/ml
[2024-11-08 20:38] VITALS: BMI 19.0
[2024-11-08 20:44] VITALS: BP 161/79
[2024-11-08 21:00] VITALS: BP 135/87
--- NOTE | 2024-11-08 21:12 | ED.GENMED ---
History of Present Illness
General
Chief Complaint: Chest Pain
Source: patient
Exam Limitations: none
Time Seen by Provider: 11/08/24 20:48
Nursing documentation reviewed up to this point in time: agreed with
History of Present Illness
History of Present Illness:
79-year-old female presents with pain in the left side of her chest into her left shoulder numbness, associated with dizziness she is concerned she could have had a stroke, she has had vestibular issues before, she also had a tick bite a few months
ago completed course of antibiotics, she has no arm or leg weakness no slurred speech no facial droop,
Past History
Past History
ED Past Medical History: Other (Low back pain, Lyme disease) and Other (Peripheral neuropathy)
ED Past Surgical History: Appendectomy
Social History
Tobacco: Non-smoker
Alcohol: None
Drug: None
Personal:
Living: with family
Employment: Retired
Family History
Family History: CAD and Other (Noncontributory)
Phy Exam
Physical Exam
Physical Exam:
Physical Exam
General: no apparent distress, not acutely ill
Neck: No jaundice no stridor
Heart: Regular
Lungs: no acute respiratory distress. clear bilaterally
Abdomen: Nontender
Neuro: alert and oriented. no focal neurological deficits no pronator drift no facial droop clear speech
Skin: no rash
Psychiatric: well kept. interactive and cooperative
Extremities: No calf pain strong radial pulses bilaterally bilateral hands warm and well-perfused
Scores
Heart Score for Chest Pain Patients
STEMI patient?: No
History: Slightly or Non-Suspicious
ECG: Normal
Age: >/= 65 years
Risk Factors: 1 or 2 Risk Factors
Troponin: </= Normal Limit
Heart Score for Chest Pain Patients: 3
Heart Score Risk: 2.5% MACE over next 6 weeks
Course
Orders/Labs/Results
Orders:
Orders
11/08/24 18:06
Electrocardiogram (*1) Urgent
Reason for Study: Chest Pain
EKG- Treatment ONCE
11/08/24 18:17
Complete Blood Count/With Diff Urgent
Troponin I Urgent
11/08/24 18:19
Lyme Progressive Urgent
11/08/24 20:33
Add On- LAB Urgent
Tests Added?: Lyme Screen IgG and IgM
11/08/24 21:11
CT Head W/o Iv Contrast Urgent
Comment:
Reason For Exam: Left arm numbness dizziness
CR Chest - 2 Views Urgent
Comment:
Reason For Exam: CP
11/08/24 21:12
Add On- LAB Urgent
Tests Added?: CMP
11/08/24 18:17
Vital Signs
Initial and Last Documented VS:
Initial Vital Signs
Temp Pulse Resp BP Pulse Ox
98 F 69 16 135/68 100
11/08/24 18:13 11/08/24 18:13 11/08/24 18:13 11/08/24 18:13 11/08/24 18:13
Last Documented Vital Signs
Temp Pulse Resp BP Pulse Ox
98 F 80 13 161/79 100
11/08/24 18:13 11/08/24 20:47 11/08/24 20:47 11/08/24 20:44 11/08/24 20:38
MDM/Problems Addressed
Differential Diagnosis Includes:
Peripheral neuropathy, muscle strain, cervical radiculopathy cardiac chest pain noncardiac chest pain doubt PE doubt stroke doubt acute tickborne illness
MDM/Problems Addressed:
Left arm numbness dizziness
Chronic conditions affecting care: Neurological disorder
Acute Exacerbation and/or Progression of Chronic Illness: Neurological disorder
*Radiology
Radiology exam reviewed: radiology read reviewed
*Pulse Oximetry
Patient hypoxic: no
*EKG
Interpreted by ED Provider?: Yes
Interpretation: normal
Comparison EKG: no comparison EKG present
Heart Rate: 78
Rate: normal
Rhythm: sinus
Ischemia: no ischemia
*Health Insurance Sales Agent Interpretation
Rate: normal
Interpretation: normal
Heart Rate: 78
Rhythm: sinus
*Critical Care Note
Total Time (30-74mins, 75-104mins- exclusive of procedures): Not Applicable
ED Attending Note
-
Portions of this chart may have been created with voice recognition software.� Occasional wrong word or��sound alike� substitutions may have occurred due to the inherent limitations of voice recognition software.
Discharge Plan
Departure
Prescriptions:
No Action
cholecalciferol (vitamin D3) [Vitamin D3] 2,000 UNIT capsule
2,000 unit PO DAILY
cyanocobalamin (vitamin B-12) 1,000 mcg Tablet
1,000 mcg PO DAILY
calcium carbonate [Calcium 600] 600 mg calcium (1,500 mg) Tablet
600 mg PO BID
pramipexole 0.25 mg Tablet
0.5 mg PO HS
pramipexole 0.25 mg Tablet
0.25 mg PO DAILY@1400
Visbiome 112.5 billion cell Capsule
1 cap PO DAILY
omega 6-ocf-vyg-fish oil 900-1,400 mg Capsule,Delayed Release(Dr/Ec)
1 cap PO BID
magnesium oxide 400 mg magnesium Tablet
400 mg PO BID
turmeric-herbal complex no.278 150 mg Capsule
1 cap PO AC
meclizine 12.5 mg tablet
12.5 mg PO TID 14 Days Qty: 42 0RF
Rx Instructions:
Ok to convert to as needed if symptoms resolve.
Interventions
Interventions:
*Risk Screen - Suicide Last Done: 11/08/24 18:13
*General Assessment Last Done: 11/08/24 20:38
*Neglect/Abuse Screening Last Done: 11/08/24 18:13
*ED- Fall Risk Assessment Last Done: 11/08/24 20:38
*ED COVID-19 Vaccine History Last Done: 11/08/24 20:38
ED- Cardiac Assessment Last Done: 11/08/24 20:38
Discharge Date and Time
Print Language: MONGOLIAN
[2024-11-08 21:31] LABS: ALT (SGPT) 24 U/L (0-35); AST (SGOT) 35 U/L (14-36); Albumin 4.5 g/dl (3.5-5.0); Alkaline Phosphatase 87 U/L (38-126); Blood Urea Nitrogen 18 mg/dl (7-17); Calcium 9.4 mg/dl (8.4-10.2); Carbon Dioxide 28 mmol/L (22-30); Chloride 95 mmol/L (98-107); Estimated Creatinine Clearance 59 ml/min; Glucose 109 mg/dl (70-99); Potassium 4.4 mmol/L (3.5-5.1); Sodium 132 mmol/L (135-145); Total Bilirubin 0.6 mg/dl (0.2-1.3); eGFR > 60.00
[2024-11-08] MEDS: MOTRIN 400 MG PO (21:36)
--- NOTE | 2024-11-08 23:17 | ED.GENMED ---
History of Present Illness
General
Chief Complaint: Chest Pain
Time Seen by Provider: 11/08/24 20:48
Past History
Past History
ED Past Medical History: Other (Low back pain, Lyme disease) and Other (Peripheral neuropathy)
ED Past Surgical History: Appendectomy
Social History
Tobacco: Non-smoker
Alcohol: None
Drug: None
Personal:
Living: with family
Employment: Retired
Family History
Family History: CAD and Other (Noncontributory)
Scores
Heart Score for Chest Pain Patients
STEMI patient?: No
History: Slightly or Non-Suspicious
ECG: Normal
Age: >/= 65 years
Risk Factors: 1 or 2 Risk Factors
Troponin: </= Normal Limit
Heart Score for Chest Pain Patients: 3
Heart Score Risk: 2.5% MACE over next 6 weeks
Course
Orders/Labs/Results
Orders:
Orders
11/08/24 18:06
Electrocardiogram (*1) Urgent
Reason for Study: Chest Pain
EKG- Treatment ONCE
11/08/24 18:17
Complete Blood Count/With Diff Urgent
Troponin I Urgent
11/08/24 18:19
Comprehensive Metabolic Panel Urgent
Lyme Progressive Urgent
11/08/24 20:33
Add On- LAB Urgent
Tests Added?: Lyme Screen IgG and IgM
11/08/24 21:11
CT Head W/o Iv Contrast Urgent
Comment:
Reason For Exam: Left arm numbness dizziness
CR Chest - 2 Views Urgent
Comment:
Reason For Exam: CP
11/08/24 21:12
Add On- LAB Urgent
Tests Added?: CMP
11/08/24 21:28
Ibuprofen [Motrin] 400 mg PO NOW STA
Abnormal Lab Results
11/08/24
18:19
Sodium 132 L mmol/L
(135-145)
Chloride 95 L mmol/L
(98-107)
BUN 18 H mg/dl
(7-17)
Glucose 109 H mg/dl
(70-99)
11/08/24 18:17
11/08/24 18:19
Vital Signs
Initial and Last Documented VS:
Initial Vital Signs
Temp Pulse Resp BP Pulse Ox
98 F 69 16 135/68 100
11/08/24 18:13 11/08/24 18:13 11/08/24 18:13 11/08/24 18:13 11/08/24 18:13
Last Documented Vital Signs
Temp Pulse Resp BP Pulse Ox
98 F 92 12 135/87 100
11/08/24 18:13 11/08/24 21:00 11/08/24 21:00 11/08/24 21:00 11/08/24 20:38
Update Note
Update Note:
1115 update patient normal complaints, CT looks negative to my troponin undetectable EKG nonischemic
ED Attending Note
-
Portions of this chart may have been created with voice recognition software.� Occasional wrong word or��sound alike� substitutions may have occurred due to the inherent limitations of voice recognition software.
Discharge Plan
Departure
Patient Disposition: Home (Routine Discharge)
Date of Disposition: 11/08/24
Time of Disposition: 23:17
Patient with high blood pressure during this ER visit?: No
Condition: Good
Covid-19: Not Applicable
Discharge Problem:
Dizziness, Chest pain
Instructions: Chest Pain PCP Follow Up
Prescriptions:
No Action
cholecalciferol (vitamin D3) [Vitamin D3] 2,000 UNIT capsule
2,000 unit PO DAILY
cyanocobalamin (vitamin B-12) 1,000 mcg Tablet
1,000 mcg PO DAILY
calcium carbonate [Calcium 600] 600 mg calcium (1,500 mg) Tablet
600 mg PO BID
pramipexole 0.25 mg Tablet
0.5 mg PO HS
pramipexole 0.25 mg Tablet
0.25 mg PO DAILY@1400
Visbiome 112.5 billion cell Capsule
1 cap PO DAILY
omega 7-hlj-xwj-fish oil 900-1,400 mg Capsule,Delayed Release(Dr/Ec)
1 cap PO BID
magnesium oxide 400 mg magnesium Tablet
400 mg PO BID
turmeric-herbal complex no.278 150 mg Capsule
1 cap PO AC
meclizine 12.5 mg tablet
12.5 mg PO TID 14 Days Qty: 42 0RF
Rx Instructions:
Ok to convert to as needed if symptoms resolve.
Activity Restrictions/Additional Instructions:
Drink plenty of fluids, follow-up with your family doctor
Interventions
Interventions:
*Risk Screen - Suicide Last Done: 11/08/24 18:13
*General Assessment Last Done: 11/08/24 20:38
*Neglect/Abuse Screening Last Done: 11/08/24 18:13
*ED- Fall Risk Assessment Last Done: 11/08/24 20:38
*ED COVID-19 Vaccine History Last Done: 11/08/24 20:38
ED- Cardiac Assessment Last Done: 11/08/24 20:38
Discharge Date and Time
Print Language: AMHARIC
[2024-11-08 23:50] VITALS: BP 141/66
[2024-11-10 11:53] LABS: Lyme Antibody Screen, EIA Negative (Negative)
== END 2024-11-08 23:51 | disposition home or self-care (01) ==
LOC: EMR 18:04
PROVIDERS: EMERGENCY PHYSICIAN Emergency Medicine; FAMILY PHYSICIAN Family Medicine
DX: R07.89 Other chest pain (principal); Z82.49 Family history of ischemic heart disease and other diseases of the circulatory system; Z86.73 Personal history of transient ischemic attack (TIA), and cerebral infarction without residual deficits; Z90.49 Acquired absence of other specified parts of digestive tract
CPT/HCPCS: 99284; 70450; 71046; 80053; 84484; 85025; 86617; 86618; 93005

== ENCOUNTER 2025-05-18 23:25 | Observation (INO) | payer MEDICARE, OTHER, SELFPAY ==
[2025-05-18 18:36] VITALS: BP 134/63; BMI 19.8
[2025-05-18 18:57] LABS: Hematocrit 34.6 % (37.0-47.0); Hemoglobin 11.7 g/dL (12.0-16.0); Mean Corp Hgb Conc. 33.8 g/dL (33.0-37.0); Mean Corpuscular Volume 87.8 fL (81.0-99.0); Nucleated Red Blood Cells % 0 %; Platelet Count 158 10^3/uL (130-400); Red Cell Dist. Width 13.2 % (11.5-14.5)
[2025-05-18 19:00] VITALS: BP 121/64
--- NOTE | 2025-05-18 19:15 | ED.GENMED ---
History of Present Illness
General
Chief Complaint: Chest Pain
Source: patient
Exam Limitations: none
Time Seen by Provider: 05/18/25 19:01
Nursing documentation reviewed up to this point in time: agreed with
History of Present Illness
History of Present Illness:
80-year-old female with history as noted presents to the ER for evaluation of chest pain. Patient reports onset of symptoms this evening while at rest and have been constant since that time. She reports she had some very mild intermittent chest
pains this afternoon but this evening around 4:30 PM when she was getting ready to start making dinner she began to experience more intense chest pain in the left side of her chest. She says that she took some aspirin as well as a spray of
nitroglycerin and this seemed to improve her symptoms but they have not resolved�currently rates her pain at a 4/10 in intensity. She says she has associated dizziness as well as some heaviness in her legs and sensation of nausea. She denies any
shortness of breath. She has not been sick with cough or fever recently. She denies any abdominal pain. No diaphoresis. She says that she has had similar symptoms intermittently in the past but never this intensely. She does note that she was
recently on a trip to [place] and returned home 2 weeks ago�while she was [place] she said she had an episode of intense chest pain requiring an ER visit and this is where she was prescribed the nitroglycerin for use as needed. She says they were
concerned that she was having angina although she said she has never seen a freight broker at any point in time and has no known cardiac history in her past.
Past History
Past History
ED Past Medical History: Other (Low back pain, Lyme disease) and Other (Peripheral neuropathy)
ED Past Surgical History: Appendectomy
Social History
Tobacco: Non-smoker
Alcohol: None
Drug: None
Personal:
Living: with family
Employment: Retired
Family History
Family History: CAD and Other (Noncontributory)
Review of Systems
Review of Systems
All Other Systems: ROS reviewed and negative except as documented in HPI and ROS
Constitutional: Denies fever
Respiratory: Denies trouble breathing
Cardiac: Reports chest pain; Denies palpitations
ABD/GI: Reports nausea; Denies abdominal pain or vomiting
: Denies flank pain
Musculoskeletal: Reports muscle pain; Denies edema, neck pain or back pain
Neurological: Denies dizzy or headache
Phy Exam
Physical Exam
Physical Exam:
General: Awake, alert, oriented x3; no acute distress
Head: Normocephalic, atraumatic
Eyes: Conjunctiva normal, sclera anicteric
Throat: Airway intact, handling secretions
Neck: Trachea midline, supple without meningismus
Lungs: Clear to auscultation bilaterally, no wheezing, rales, rhonchi
Heart: Regular rate and rhythm, no murmurs, gallops, or rubs
Abd: Soft, non distended, nontender
Neuro: Grossly intact
Skin: no rash
Extremities: No edema in extremities, no calf tenderness, equal pulses in all extremities
Scores
Heart Failure Risk
Heart Failure Risk Score: Not Applicable
Heart Score for Chest Pain Patients
STEMI patient?: No
History: Slightly or Non-Suspicious
ECG: Normal
Age: >/= 65 years
Risk Factors: No Risk Factors
Troponin: </= Normal Limit
Heart Score for Chest Pain Patients: 2
Heart Score Risk: 2.5% MACE over next 6 weeks
Withdrawal Assessment of Alcohol
Withdrawal Assessment Completed?: Not applicable
Course
Orders/Labs/Results
Orders:
Orders
05/18/25 18:38
EKG [Electrocardiogram (*1)] Urgent
Reason for Study: Tachycardia
05/18/25 18:39
EKG- Treatment ONCE
05/18/25 18:49
Add On- LAB Urgent
Tests Added?: lipase
Complete Blood Count/With Diff Urgent
Comprehensive Metabolic Panel Urgent
Lipase Urgent
Troponin I Urgent
05/18/25 19:14
CR Chest - 2 Views Urgent
Comment:
Reason For Exam: cp
05/18/25 19:21
D-Dimer Urgent
05/18/25 22:21
Troponin I Urgent
Abnormal Lab Results
05/18/25
18:49
RBC 3.94 L 10^6/uL
(4.20-5.40)
Hgb 11.7 L g/dL
(12.0-16.0)
Hct 34.6 L %
(37.0-47.0)
Monocytes % 12.0 H %
(1.7-9.3)
Sodium 123 L mmol/L
(135-145)
Chloride 92 L mmol/L
(98-107)
BUN 20 H mg/dl
(7-17)
Total Protein 6.1 L g/dl
(6.3-8.2)
05/18/25 18:49
05/18/25 18:49
Vital Signs
Initial and Last Documented VS:
Initial Vital Signs
Temp Pulse Resp BP Pulse Ox
36.8 C 64 12 134/63 99
05/18/25 18:36 05/18/25 18:36 05/18/25 18:36 05/18/25 18:36 05/18/25 18:36
Last Documented Vital Signs
Temp Pulse Resp BP Pulse Ox
36.8 C 86 17 121/87 99
05/18/25 18:36 05/18/25 21:30 05/18/25 21:30 05/18/25 21:00 05/18/25 21:30
MDM/Problems Addressed
Differential Diagnosis Includes:
ACS, GERD, anxiety; PE should be considered given her recent flight from [place] but considered less likely clinically; very low clinical suspicion for aortic dissection; history not consistent with pneumonia or pneumothorax
MDM/Problems Addressed:
80-year-old female presents for evaluation of left-sided chest pain that started at rest this evening and has been constant; she says she did take aspirin and nitroglycerin and felt some improvement although not resolution of her symptoms. She
arrives to us with normal vital signs. Her EKG shows sinus rhythm no acute ischemic changes. Her physical exam is as documented. She had lab work sent in triage including a CBC and a CMP, troponin which are pending. Added D-dimer given her
recent long flight. Added lipase given her report of associated nausea. Will check chest x-ray. Monitor on telemetry. Reassess after the above.
Labs reviewed: CBC shows marginal anemia unlikely of acute clinical significance. She does have hyponatremia to 123�this is decreased from prior value of 132 could account at least for her dizziness. Her initial troponin is negative�will trend.
Given significant hyponatremia we will plan to admit. Added urine studies, fluid restrict for now. Discussed with hospitalist.
*Radiology
Radiology exam reviewed: preliminary read by ED provider
*Pulse Oximetry
SaO2: 98
Oxygen Mode of Delivery: Room air
Patient hypoxic: no (98%)
*EKG
Interpreted by ED Provider?: Yes
Comparison EKG: no changes
Heart Rate: 65
Rate: normal
Rhythm: sinus
[place]: normal axis
Interval: normal interval
QRS Pattern: normal QRS
Ischemia: no ischemia
*Critical Care Note
Total Time (30-74mins, 75-104mins- exclusive of procedures): Not Applicable
Data Reviewed
Review of Other/Old Records Reveals: Labs and Records
Source: patient and records
Patient Management
Discussion with other providers: Hospitalist (Discussed with hospitalist)
Escalation/DeEscalation of care consider admission/obs:
Admission indicated
ED Attending Note
-
Portions of this chart may have been created with voice recognition software.� Occasional wrong word or��sound alike� substitutions may have occurred due to the inherent limitations of voice recognition software.
Discharge Plan
Departure
Patient Disposition: Admit
Date of Disposition: 05/18/25
Time of Disposition: 22:33
Admit to doctor: Loy
Presentation/result/management discussed w/ accepting MD/DO: Hospitalist
Discharge Problem:
Hyponatremia, Chest pain
Prescriptions:
No Action
cholecalciferol (vitamin D3) [Vitamin D3] 2,000 UNIT capsule
2,000 unit PO DAILY
cyanocobalamin (vitamin B-12) 1,000 mcg Tablet
1,000 mcg PO DAILY
calcium carbonate [Calcium 600] 600 mg calcium (1,500 mg) Tablet
600 mg PO BID
pramipexole 0.25 mg Tablet
0.5 mg PO HS
pramipexole 0.25 mg Tablet
0.25 mg PO DAILY@1400
Visbiome 112.5 billion cell Capsule
1 cap PO DAILY
omega 8-urk-yxz-fish oil 900-1,400 mg Capsule,Delayed Release(Dr/Ec)
1 cap PO BID
magnesium oxide 400 mg magnesium Tablet
400 mg PO BID
turmeric-herbal complex no.278 150 mg Capsule
1 cap PO AC
meclizine 12.5 mg tablet
12.5 mg PO TID 14 Days Qty: 42 0RF
Rx Instructions:
Ok to convert to as needed if symptoms resolve.
Referrals:
UNKNOWN - PT DOES,NOT KNOW [Unknown Provider]
Interventions
Interventions:
*Risk Screen - Suicide Last Done: 05/18/25 18:36
*General Assessment Last Done: 05/18/25 18:36
*Neglect/Abuse Screening Last Done: 05/18/25 18:36
*ED- Fall Risk Assessment Last Done: 05/18/25 18:36
*ED COVID-19 Vaccine History Last Done: 05/18/25 18:36
*ED Influenza Vaccine History Last Done: 05/18/25 18:36
ED- Cardiac Assessment Last Done: 05/18/25 18:41
Discharge Date and Time
Print Language: TURKISH
[2025-05-18 19:19] LABS: ALT (SGPT) 25 U/L (0-35); AST (SGOT) 34 U/L (14-36); Albumin 3.9 g/dl (3.5-5.0); Alkaline Phosphatase 101 U/L (38-126); Blood Urea Nitrogen 20 mg/dl (7-17); Calcium 8.8 mg/dl (8.4-10.2); Carbon Dioxide 29 mmol/L (22-30); Chloride 92 mmol/L (98-107); Estimated Creatinine Clearance 61 ml/min; Glucose 94 mg/dl (70-99); Lipase 93 U/L (23-300); Potassium 4.1 mmol/L (3.5-5.1); Sodium 123 mmol/L (135-145); Total Protein 6.1 g/dl (6.3-8.2); eGFR > 60.00
[2025-05-18 19:24] LABS: Troponin I < 0.012 ng/ml
[2025-05-18 19:58] LABS: D-Dimer 0.35 ug/mlFEU (0.00-0.50)
[2025-05-18 20:01] VITALS: BP 119/62
[2025-05-18 21:00] VITALS: BP 121/87
--- NOTE | 2025-05-18 22:39 | HPS.HSE ---
Family Physician
-
Family Physician: Sandra Rahman
Chief Complaint
-
Chest pain and dizziness
History of Present Illness
This is a 80-year-old female was past medical history of chronic back pain, celiac disease, restless leg syndrome, chronic hyponatremia, recurrent episodes of dizziness presenting to the emergency department with complaints of chest pain. She
reports intermittent chest pain this afternoon started around 4:30 PM she was attempting to make a dinner. left-sided. She took a dose of aspirin and sublingual nitroglycerin spray with improvement of her symptoms. She reports that the pain is
currently not resolved at 4 out of 10 in intensity. She reports associated dizziness as well as some heaviness in her legs and some nausea. She denies any shortness of breath. She denies any nausea or vomiting. She denies having any diaphoresis.
While she was in the emergency department and walking to and from the bathroom she still complain of dizziness that she described as room spinning sensation. However there is no associated nausea. No associated diaphoresis. She reports that she
is planning on returning to vestibular training if she can get a referral. She also reports that she is forgetting about fluid and salt management for a hyponatremia. She stated that it she was told to have fluid restriction and increase salt
intake in the past but she has not been doing any of that now. She denies specific polydipsia however. She denies polyuria.
She had a recent trip to [place] and returned 2 weeks ago. She reported episode of chest pain that required ED visit the and she was prescribed nitroglycerin as needed. She denied any leg swelling. She denied any calf tenderness.
In the emergency department today she was afebrile, blood pressure was 121/80 with a pulse rate of 86 and she was satting 97% on room air. ECG shows a sinus rhythm with PACs at a rate of 65. There was no acute ischemic changes. Her troponin was
0.012. Chest x-ray shows no acute infiltrates.
She had a D-dimer that was negative. The CBC was completely unremarkable. Electrolytes notable for a sodium of 123 down from 132 otherwise unremarkable. BUN and creatinine normal.
Medical History
Past Medical History
Past Medical History: Reports Other
Additional Past Medical History:
Restless leg syndrome
Multinodular goiter
Chronic hyponatremia
Past Surgical History: Reports Other
Additional Past Surgical History:
Partial thyroidectomy
Bilateral L4-L5, L5-S1 Facet Radiofrequency 02/26/2020
Social History
Tobacco: Non-smoker
Alcohol: Occasional
Drug: None
Personal: Partner
Living: Other (Lives with Partner but he is away in trip to [facility])
Family History
Family History: Other (Mother had stroke in her 70s)
Allergies / Home Medications
Allergies reflects when Allergies were last updated in [facility].
Home Medications with original date entered in [facility]
Allergy/Medication List:
Allergies
Allergy/AdvReac Type Severity Reaction Status Date / Time
gluten Allergy celiac Verified 05/18/25 18:41
disease
Home Medications
cholecalciferol (vitamin D3) 50 mcg (2,000 unit) capsule (Vitamin D3) 2,000 unit PO DAILY Supplement 07/11/17
Lactobac no.2-Bifidobac no.1-S. thermo 112.5 billion cell capsule (Visbiome) 1 cap PO DAILY Supplement 04/25/24
calcium carbonate (Calcium 600) 600 mg PO BID Supplement 04/25/24
cyanocobalamin (vitamin B-12) 1,000 mcg tablet 1,000 mcg PO DAILY Supplement 04/25/24
magnesium oxide 400 mg PO BID Supplement 04/25/24
omega 7-sdk-ckq-fish oil 900 mg-1,400 mg capsule,delayed release 1 cap PO BID Supplement 04/25/24
pramipexole 0.25 mg tablet 0.25 mg PO DAILY@1400 Neurological Condition 04/25/24
pramipexole 0.25 mg tablet 0.5 mg PO HS Neurological Condition 04/25/24
turmeric 150 mg-herbal complex no.278 capsule 1 cap PO AC Supplement 04/26/24
meclizine 12.5 mg tablet 12.5 mg PO TID 14 days #42 tabs 04/27/24
Review of Systems
-
History Source: Patient
A 12 point ROS was completed and negative except as noted: Yes
Constitutional: Reports No Symptoms and Other (as below)
EENT: Reports No Symptoms
Respiratory: Reports No Symptoms
Cardiac: Reports Chest Pain
Abdomen/GI: Reports No Symptoms
: Reports No Symptoms
Musculoskeletal: Reports No Symptoms
Skin: Reports No Symptoms
Neurological: Reports Dizzy
Endocrine: Reports No Symptoms
Hematologic/Lymphatic: Reports No Symptoms
Psych: Reports No Symptoms
Physical Exam
Vital Signs
Vital Signs
Temp Pulse Resp BP Pulse Ox
98.2 F 86 17 121/87 99
05/18/25 18:36 05/18/25 21:30 05/18/25 21:30 05/18/25 21:00 05/18/25 21:30
Physical Exam
General: Well Developed, No Apparent Distress and Other (as below)
HEENT: NormoCephalic, Anicteric and Moist mucous membranes
Respiratory: Clear
Cardiac: S1/S2 and Regular Rhythm
Breast: Deferred by me
GI: Soft, Non Tender, Non Distended and Normal Bowel Sounds
Rectal: Deferred by Provider
Genito-urinary: Deferred by me
Musculoskeletal: No Clubbing, No Cyanosis and No Edema
Skin: Warm
Neuro: AO x 3 and Nonfocal/grossly intact
Hematologic/Lymphatic: No Lymphadenopathy
Laboratory Results
-
05/18/25 18:49
05/18/25 18:49
Laboratory Results
Total Bilirubin 0.5 mg/dl (0.2-1.3) 05/18/25 18:49
AST 34 U/L (14-36) 10/13/25 18:49
ALT 25 U/L (0-35) 05/18/25 18:49
Alkaline Phosphatase 101 U/L (38-126) 05/18/25 18:49
Troponin I Cancelled 05/18/25 21:44
Lipase Cancelled 05/18/25 19:14
Data Reviewed
-
Diagnostic Radiology: Image Personally Visualized and interpreted
Medical Tests (Nuc Med, Echo, EKG etc): Report Reviewed by me
Lab Data: Labs Reviewed by me
Old Records: Reviewed
Impression/Plan
-
IMPRESSION:
80-year-old healthy appearing female here with episode of dizziness that she describes as spinning sensation that is worse with walking and improves with sitting. She is concerned that she is not able to drive due to the symptoms. She denies any
visual symptoms. She denies any headache. Chest pain is very intermittent and atypical for cardiac. She has no other cardiac history. She has never had a syncopal episode. She is found to be hyponatremic he has prior episodes of hyponatremia.
She has neglected to follow strict hyponatremia diet and fluid management. No evidence of GI losses or poor oral intake.
PLAN:
Hyponatremia -acute on chronic hyponatremia. Patient on pramipexole and has restless leg syndrome. However she has not been following the fluid restriction or dietary salt management.
- Admit to telemetry observation
- Fluid restriction to 40 ounces free water
- Restart additional salt to 1 g daily
- Orthostatic vital signs
- Urine osm's and sodium pending
- TSH in a.m.
Chest pain -atypical, workup in the ED is negative with normal ECG and troponin. Chest pain is slightly attributed to producible with palpation. Suspect musculoskeletal
- Second troponin pending, telemetry observation for now
- Recommend outpatient screening stress test. Patient has never had a stress test before.
- Lipid panel in a.m.
- D-dimer negative, recent plane flight. Exam shows no calf tenderness or swelling.
Dizziness -known history of vertigo. She is pending return to vestibular training but has not started.
-Referral back to vestibular training on discharge
-Meclizine for now
- PT consult
DVT prophylaxis�SCDs
CODE STATUS�full code
[2025-05-18 22:53] LABS: Troponin I < 0.012 ng/ml
[2025-05-18 23:00] VITALS: BP 115/63
[2025-05-18] MEDS: SODIUM CHLORIDE 1 GRAM PO (23:17)
[2025-05-18] MEDS: MIRAPEX, GENERIC 0.5 MG PO (23:17)
[2025-05-18] MEDS: ANTIVERT 12.5 MG PO (23:17)
[2025-05-19] VITALS (7 sets, daily range): BP systolic 103–137; BP diastolic 55–71; PULSE 65–97; BMI 19.5
[2025-05-19 07:09] LABS: Blood Urea Nitrogen 14 mg/dl (7-17); Calcium 8.8 mg/dl (8.4-10.2); Carbon Dioxide 30 mmol/L (22-30); Chloride 100 mmol/L (98-107); Estimated Creatinine Clearance 60 ml/min; Glucose 97 mg/dl (70-99); HDL Cholesterol 88 mg/dl; LDL Cholesterol, Calculated 81 mg/dl; Potassium 4.4 mmol/L (3.5-5.1); Sodium 132 mmol/L (135-145); Very Low Density Lipoprotein 9 mg/dl (0-30); eGFR > 60.00
[2025-05-19 08:59] LABS: Glycohemoglobin (HgbA1c) 5.6 % (4.0-5.6)
[2025-05-19] MEDS: VISBIOME 1 CAP PO (09:32)
[2025-05-19] MEDS: MAGNESIUM OXIDE 400 MG PO (09:32)
--- NOTE | 2025-05-19 10:15 | W.PN.HOSP.TC ---
Today's Communication/Plan
-
PT consult
Assessment / Plan
Assessment / Plan
Gen-AAOx3, NAD
HEENT-NC, AT, anicteric, clear oral mm
Neck-supple
CV-reg, no M, +S1/S2
Lungs-clear B/L
Abd-soft, NT, ND
Ext-no edema
Musculoskeletal-no cyanosis, clubbing
Skin-warm and dry
Neuro-grossly non-focal
Psych-calm, cooperative
Chest pressure -atypical. Troponins negative. EKG with sinus rhythm, PACs.
Will need outpatient stress test. [place] text sent to cardiology to help arrange. 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
Originally developed chest pressure 2 weeks ago when she was in [place]. Went to the emergency room and was prescribed sublingual nitroglycerin and discharged.
Has never had a stress test in the past. Denies cardiac history.
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 PT consulted. Will need outpatient vestibular therapy.
Does have mild orthostasis based on vital sign assessment as noted by increased heart rate when standing. Not sure if this is related to pramipexole or other etiology.
Acute on chronic hyponatremia unclear etiology of baseline chronic hyponatremia. 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
Sodium improved to 132 with fluid restriction and salt tablets. Will lessen fluid restriction to 48 ounces daily moving forward.
Patient is aware that she requires long-term fluid restriction but admits to noncompliance at home prior to admission.
TSH is normal. Urine osmolality however is low at 142, urine sodium 25.
Recommend close outpatient monitoring of sodium levels with primary care physician. Discussed with patient.
Normocytic anemia -unclear acuity or etiology. Recommend outpatient evaluation with PCP.
Restless leg syndrome
Full code
Dispo -possible discharge later today after PT consult. Outpatient follow-up.
Anticipated Discharge: Today
Subjective/Interval History
-
Date of Service: May 19, 2025
Patient seen and examined, complaining of vertigo. Denies chest pressure.
Objective Data
-
Labs:
Laboratory Results
05/19/25
06:31
Sodium 132 L D
Potassium 4.4
Chloride 100
Carbon Dioxide 30
BUN 14
Creatinine 0.6
Glucose 97
Calcium 8.8
Vital Signs:
Vital Signs
Temp Pulse Resp BP Pulse Ox
97.7 F 64 18 125/64 98
05/19/25 07:25 05/19/25 07:25 05/19/25 07:25 05/19/25 07:25 05/19/25 07:25
I&O
05/18/25 05/19/25 05/20/25
06:59 06:59 06:59
Intake Total 0 / 0
Balance 0 / 0
Review of Systems
-
History Source: Patient
All other systems: Reviewed and negative
[2025-05-19 12:02] LABS: Hepatitis C Antibody Negative (Negative)
--- NOTE | 2025-05-19 14:12 | CM ---
Pt lives alone in multistory home but only lives on the 1st floor. NO DME. Independent in ADLs and IADLs. 2 steps at entrance. No hx HH, home O2,No SNF. Confirmed PCP, RX insurance and drug plan.
PCP: Dr Rahman
[facility] in [place]
Pt is discharged to home , no needs. Taking an Uber to go home
[2025-05-19] MEDS: FLUZONE HIGH-DOSE 2025-26 0.5 ML IM (14:16)
--- NOTE | 2025-05-20 12:40 | W.DS.TRANS ---
DC Summary - Guide Domestic Tour
-
Discharge Instructions:
Discharge Diagnosis/Procedures Vertigo, hyponatremia
Diet Low Cholesterol,Low Fat
Activity As tolerated
Driving Restrictions As prior to admission
Bathing Restrictions None
Blood Work BMP in 48 hours
Others Tests stress echocardiogram 05/27/25 @1:45PM at
[facility] - see order
Other Services PT
Instructions:
Stand-Alone Forms:
Changes to Home Medications: No
Discharge Medications:
DC Medications w/original date entered in [employer]
cholecalciferol (vitamin D3) 50 mcg (2,000 unit) capsule (Vitamin D3) 2,000 unit PO DAILY Supplement 07/11/17
Lactobac no.2-Bifidobac no.1-S. thermo 112.5 billion cell capsule (Visbiome) 1 cap PO DAILY Supplement 04/25/24
calcium carbonate (Calcium 600) 600 mg PO BID Supplement 04/25/24
cyanocobalamin (vitamin B-12) 1,000 mcg tablet 1,000 mcg PO DAILY Supplement 04/25/24
magnesium oxide 400 mg PO BID Supplement 04/25/24
omega 0-jca-jym-fish oil 900 mg-1,400 mg capsule,delayed release 1 cap PO BID Supplement 04/25/24
pramipexole 0.25 mg tablet 0.75 mg PO HS Neurological Condition 04/25/24
gabapentin 100 mg capsule 100 mg PO HS Neurological Condition 05/18/25
BMP #1 ea 05/19/25
Home Medication Changes
Pending Results: No
== END 2025-05-19 15:50 | disposition home or self-care (01) ==
LOC: 4 EAST ACU 23:25
PROVIDERS: Emergency Medicine; ADMITTING PHYSICIAN Internal Medicine; ATTENDING PHYSICIAN Hospitalist; EMERGENCY PHYSICIAN Emergency Medicine; FAMILY PHYSICIAN Family Medicine
DX: R07.89 Other chest pain (principal); H81.10 Benign paroxysmal vertigo, unspecified ear; R11.0 Nausea; E22.2 Syndrome of inappropriate secretion of antidiuretic hormone; I49.1 Atrial premature depolarization; R00.0 Tachycardia, unspecified; G62.9 Polyneuropathy, unspecified; G89.29 Other chronic pain; K90.0 Celiac disease; G25.81 Restless legs syndrome; Z82.3 Family history of stroke; Z82.49 Family history of ischemic heart disease and other diseases of the circulatory system; D64.9 Anemia, unspecified; Z91.199 Patient's noncompliance with other medical treatment and regimen due to unspecified reason; Z90.49 Acquired absence of other specified parts of digestive tract
CPT/HCPCS: 71046; 80048; 80053; 80061; 83036; 83690; 83935; 84300; 84443; 84484; 85025; 85379; 86803; 90662; 93005; 97112; 97163; 99285; G0008; G0378

== ENCOUNTER → 2025-05-21 10:28 | Outpatient (REF) | payer MEDICARE, OTHER, SELFPAY ==
[2025-05-21 12:08] LABS: Cortisol, Random 14.1 ug/dl
== END ==
LOC: RAD 10:28
PROVIDERS: ATTENDING PHYSICIAN Internal Medicine Endocrinology, Diabetes & Metabolism; FAMILY PHYSICIAN Family Medicine
DX: E04.2 Nontoxic multinodular goiter (principal); E06.3 Autoimmune thyroiditis
CPT/HCPCS: 36415; 76536; 82533

== ENCOUNTER → 2025-05-27 13:34 | Outpatient (REF) | payer MEDICARE, OTHER, SELFPAY ==
[2025-05-27 15:34] LABS: Blood Urea Nitrogen 19 mg/dl (7-17); Calcium 9.7 mg/dl (8.4-10.2); Carbon Dioxide 33 mmol/L (22-30); Chloride 91 mmol/L (98-107); Glucose 132 mg/dl (70-99); Potassium 4.1 mmol/L (3.5-5.1); Sodium 131 mmol/L (135-145); eGFR > 60.00
== END ==
LOC: RCS 13:34
PROVIDERS: ATTENDING PHYSICIAN Internal Medicine Cardiovascular Disease; FAMILY PHYSICIAN Nurse Practitioner Women's Health; REFERRING PHYSICIAN Hospitalist
DX: I49.1 Atrial premature depolarization (principal); R07.9 Chest pain, unspecified
CPT/HCPCS: 36415; 80048; 93017; 93350

== ENCOUNTER → 2025-07-17 09:08 | Outpatient (REF) | payer MEDICARE, OTHER, SELFPAY | LOC: RAD 09:08 | PROVIDERS: ATTENDING PHYSICIAN Internal Medicine Endocrinology, Diabetes & Metabolism; FAMILY PHYSICIAN Family Medicine | DX: M81.0 Age-related osteoporosis without current pathological fracture (principal) | CPT/HCPCS: 77080 ==